=== PATIENT | male | born 1945 | race Caucasian/White ===

== ENCOUNTER 2024-10-22 00:39 | Emergency (ER) | payer MEDICARE, BC, SELFPAY ==
[2024-10-22 00:42] VITALS: BP 176/68; BMI 28.4
--- NOTE | 2024-10-22 00:56 | ED.MUSCINJ ---
HPI-Injury
General
Chief Complaint: Musculo-Skeletal Complaint
Source: patient
Exam Limitations: none
Time Seen by Provider: 10/22/24 00:42
History of Present Illness-Injury
Is this injury a work related problem?: No
Is pt an associate of [place],[facility]/[place]?: No
Initial Injury comments:
This is a 79 year old male that comes in by ambulance with c/o fall. States that he got up after the [employer] game was over to start to walk. States that when he got up he fell onto the floor. States that he did not hit his head or have any LOC.
States that he landed on his left shoulder and upper arm. States that he has pain in the left upper arm. Denies any fever, chills, chest pain. SOB, abd pain,nausea, vomiting, diarrhea, headache, dizziness, urinary burning.
Past History
Past History
ED Past Medical History: CVA (aphasia), Hypercholesterolemia, ID and Other (Sleep apnea, CPAP)
ED Past Surgical History: Cardiac (Stent)
Social History
Tobacco: Non-smoker
Alcohol: None
Personal:
Living: with family
Review of Systems
Review of Systems
All Other Systems: ROS reviewed and negative except as documented in HPI and ROS
Constitutional: Reports no symptoms; Denies fever or chills
EENT: Reports no symptoms
Respiratory: Reports no symptoms; Denies cough or trouble breathing
Cardiac: Reports no symptoms; Denies chest pain
ABD/GI: Reports no symptoms; Denies abdominal pain, nausea, vomiting or diarrhea
: Reports no symptoms; Denies dysuria, frequency or urgency
Musculoskeletal: Reports other (Left upper arm pain)
Skin: Reports no symptoms
Neurological: Reports no symptoms; Denies dizzy or headache
Psychiatric: Reports no symptoms
Musculoskeletal Injury Exam
Musculoskeletal Injury Exam
Left Upper Arm:
Pain with Movement?: Moderate
Tender to palpation?: Mild
Soft tissue swelling?: Mild
External deformity and angulation?: None
Joint effusion?: None
Contusion?: None
Hematoma-local bleeding into tissue?: None
Strain- Sprain- Tear (Connective tissue injury)?: None
Crepitus with movement?: No
Joint instability?: No
Malalignment/deformity?: No
Range of motion: Limited (Due to pain)
Distal skin color and temperature: normal-warm & good color
Capillary Refill: normal
Normal distal neurovascular exam?: Yes
Phy Exam
General Physical Exam
General Presentation: mild distress
General age: appears stated age
General Skin: warm and dry
General Habitus: elderly
General Mental: alert
General Hydration: appears well hydrated
ENT Exam
ENT Exam: TM's normal, pharynx normal and neck supple
Eye Exam
Eye Exam: EOMI
Cardiovascular Exam
Cardiovascular Exam: regular rate/rhythm and normal peripheral pulses
Pulmonary Exam
Pulmonary Exam: no respiratory distress, chest non tender, no rhonchi, no wheezing, no cough and other (Very fine crackles at bases)
Gastrointestinal Exam
Gastrointestinal Exam: normal bowel sounds, non tender, soft, no organomegaly, no pulsatile mass and non distended
Musculoskeletal Exam
Musculoskeletal Exam: other (Left upper arm tenderness with palpation. patient able to move fingers. Limited movement due to pain. Good peripheral pulses. Negative for any cervical neck tenderness. Able flex knees, negative for pain with inversion
or eversion)
Skin Exam
Skin Exam: normal color, no rash and no petechia
Psychiatric Exam
Psychiatric Exam: normal mood/affect
Injury Course
Orders/Labs/Results
Orders:
Orders
10/22/24 00:55
Humerus, Left 2 Views [CR Humerus - Left Min 2 Views*] Urgent
Comment:
Reason For Exam: Fall upper arm pain
Shoulder, Left 2 View CR [CR Shoulder - Left Min 2 View*] Urgent
Comment:
Reason For Exam: Fall
10/22/24 00:56
Acetaminophen [Tylenol] 1,000 mg PO NOW STA
MDM/Problems Addressed
Differential Diagnosis Includes:
Shoulder fracture. Shoulder dislocation.
MDM/Problems Addressed:
This is a 79 year old male that got up after the [employer] game and fell. States that he laned on his left shoulder. States that he did not hit his head and there was no LOC. and daughter who were there states that he did not hit his head.
Will get x-ray of the left shoulder and humerus
Chronic conditions affecting care:
NA
Acute Exacerbation and/or Progression of Chronic Illness:
NA
*Radiology
Radiology exam reviewed: preliminary read by ED provider (Shoulder left- Left proximal humeral head fracture)
*Pulse Oximetry
Patient hypoxic: no
*EKG
Interpreted by ED Provider?: NA
Rate: EKG- N/A
*Title Lawyer Interpretation
Rate: Title Lawyer- N/A
*Critical Care Note
Total Time (30-74mins, 75-104mins- exclusive of procedures): Not Applicable
ED Attending Note
-
Portions of this chart may have been created with voice recognition software.� Occasional wrong word or��sound alike� substitutions may have occurred due to the inherent limitations of voice recognition software.
Discharge Plan
Departure
Patient Disposition: Home (Routine Discharge)
Date of Disposition: 10/22/24
Time of Disposition: 01:32
Patient with high blood pressure during this ER visit?: Yes
Condition: Good
Covid-19: Not Applicable
Discharge Problem:
Fracture of humeral head
Instructions: How to Use a Shoulder Sling, Upper Arm Fracture ED, BLOOD PRESSURE, RICE Therapy
Prescriptions:
No Action
tamsulosin 0.4 mg Capsule
0.4 mg PO DAILY
aspirin 81 mg Tablet
81 mg PO DAILY
metoprolol succinate 25 mg Tablet Extended Release 24 Hr
25 mg PO DAILY
Eliquis 5 mg Tablet
5 mg PO BID
icosapent ethyl [Vascepa] 0.5 gram Capsule
2 g PO DAILY
multivitamin with folic acid [Tab-A-Pam] 1 TABLET tablet
1 tab PO DAILY Qty: 0 0RF
atorvastatin 40 MG tablet
40 mg PO DAILY Qty: 30 0RF
Referrals:
Chucky Kaplan MD [Active] - Follow up in 2-3 days
UNKNOWN - PT DOES,NOT KNOW [Family Provider] -
Activity Restrictions/Additional Instructions:
As discussed, you have a proximal humeral head fracture. This is what makes up the shoulder. Please wear the sling when you are up moving around. You may remove the sling to sleep and rest on a pillow. Ice to the shoulder to help with pain and
decrease the swelling. You may use Tylenol 1000mg every 6 hours for pain. Follow up with the resident program specialist in the next 2-3 days. IF YOU HAVE INCREASED OR CHANGING PAIN, OR YOU HAVE ANY OTHER CONCERNS PLEASE RETURN TO THE EMERGENCY ROOM.
Interventions
Interventions:
*Risk Screen - Suicide Last Done: 10/22/24 00:42
*General Assessment Last Done: 10/22/24 00:42
*Neglect/Abuse Screening Last Done: 10/22/24 00:42
ED- Fall Risk Assessment Last Done: 10/22/24 01:01
*ED COVID-19 Vaccine History Last Done: 10/22/24 00:42
ED-Musculoskeletal Assessment Last Done: 10/22/24 01:01
Discharge Date and Time
Print Language: ESTONIAN
[2024-10-22] MEDS: TYLENOL 1000 MG PO (00:58)
== END 2024-10-22 02:33 | disposition home or self-care (01) ==
LOC: EMR 00:39
PROVIDERS: EMERGENCY PHYSICIAN Emergency Medicine
DX: S42.295A Other nondisplaced fracture of upper end of left humerus, initial encounter for closed fracture (principal); W18.39XA Other fall on same level, initial encounter; E78.00 Pure hypercholesterolemia, unspecified; I25.2 Old myocardial infarction; G47.30 Sleep apnea, unspecified; I69.920 Aphasia following unspecified cerebrovascular disease; Z95.5 Presence of coronary angioplasty implant and graft
CPT/HCPCS: 99283; 73030; 73060

== ENCOUNTER → 2024-10-24 11:20 | Outpatient (REF) | payer MEDICARE, BC, SELFPAY | LOC: HWRAD 11:20 | PROVIDERS: ATTENDING PHYSICIAN Student in an Organized Health Care Education/Training Program; FAMILY PHYSICIAN Family Medicine | DX: M25.512 Pain in left shoulder (principal) | CPT/HCPCS: 73200 ==